=== PATIENT | male | born 1975 | race Caucasian/White ===

== ENCOUNTER → 2017-10-19 | Outpatient (CLI) | payer MEDICARE | LOC: CARD 16:01 | PROVIDERS: ATTEND Nurse Practitioner Family | DX: R00.0 Tachycardia, unspecified (principal) | CPT/HCPCS: 93005 ==

== ENCOUNTER → 2017-11-08 | Outpatient (CLI) | payer MEDICARE | LOC: CARD 12:24 | PROVIDERS: ATTEND Internal Medicine Cardiovascular Disease | DX: R00.0 Tachycardia, unspecified (principal); I10 Essential (primary) hypertension; R06.02 Shortness of breath; F32.89 Other specified depressive episodes; R53.83 Other fatigue | CPT/HCPCS: 93225; 93226 ==

== ENCOUNTER → 2017-11-10 | Outpatient (CLI) | payer MEDICARE ==
[~2017-11-10] MED LIST: CATHETER FLUSH 10 ML SYR IV PRN
[2017-11-10 09:10] VITALS: BP 126/84
[2017-11-10 09:13] VITALS: BP 149/86
[2017-11-10 09:22] VITALS: BP 204/85
--- NOTE | 2017-11-10 14:06 | STRESS TEST ---
DATE OF SERVICE: 11/10/2017 RESTING AND POST EXERCISE TECHNETIUM-99M TETROFOSMIN SPECT CT IMAGING ORDERING PHYSICIAN: Jesus Guerrier MD, MA, FACP, FACC PRIMARY PHYSICIAN: Dr. Nicole. OTHER PHYSICIAN: MARY Parra CLINICAL DIAGNOSIS: Shortness of breath. Baseline images were carried out after injection of 10.59 mCi technetium-99m tetrofosmin. This was followed by exercise on a treadmill. Heart rate and blood pressure responses to exercise were normal. After the patient had attained more than 85% of max predicted heart rate, 27.6 mCi technetium-99m tetrofosmin were injected and the exercise was continued for another minute. At peak exercise, there is considerable baseline artifact and the ST segments cannot be interpreted for ischemia. In the recovery phase, there is no distinct evidence of ischemia. No significant cardiac arrhythmia was seen. The test was stopped on account of fatigue. He exercised for a total of 7 minutes and 30 seconds in the [place]ingo protocol. He attained 9.1 METS of workload and 100% of maximum predicted heart rate. Heart rate and blood pressure product was . Review of images at rest and following stress does not indicate any significant perfusion defect consistent with significant myocardial ischemia or infarction. Gated images show normal global systolic function with normal regional wall motion. Left ventricular ejection fraction is calculated to be 58%. Left ventricular end diastolic volume is 70 mL. TID is absent (0.88.) CONCLUSIONS: 1. No evidence of any significant myocardial ischemia or infarction of the study. 2. Normal regional wall motion. 3. Normal global left ventricular systolic function with a calculated ejection fraction of 58%. Job ID: [id number] DocumentID: [id number] Dictated Date: 11/10/2017 11:30:59 Poultry Pinner Date: 11/10/2017 14:05:46 Dictated By: JESUS GUERRIER MD, MA, FACP, FACC,
== END ==
LOC: CARD 07:37
PROVIDERS: ATTEND Internal Medicine Cardiovascular Disease
DX: I10 Essential (primary) hypertension (principal); R06.02 Shortness of breath; F32.89 Other specified depressive episodes; R53.83 Other fatigue; R00.0 Tachycardia, unspecified
CPT/HCPCS: 78452; 93017

== ENCOUNTER 2019-01-09 16:06 | Emergency (ER) | payer MEDICARE ==
[~2019-01-09] VITALS: Ht 177.8 cm; Wt 91.6 kg
--- OUTSIDE RECORDS SUMMARY | 2019-01-09 16:10 | XMS REPORT ---
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 Name Role Phone Migration, Doctor Unavailable Unavailable PROBLEMS Type Condition ICD9-CM Code [id number] Code Onset Dates Condition Status SNOMED Code Problem Acute sinusitis, unspecified 461.9 Active 82582757 Problem Nondependent tobacco use disorder 305.1 Active 973189404 Problem Cough 786.2 Active 42946254 Problem Postnasal drip 784.91 Active 66496115 Problem Acute upper respiratory infections of unspecified site 465.9 Active 70656111 ALLERGIES No Information ENCOUNTERS Encounter Location Date Diagnosis [facility] [id number] [place] [phone] 19 Sep, 2015 [facility] [id number] [place] [phone] 16 Sep, 2015 [facility] [id number] [place] [phone] Sep, Left elbow pain M25.522 [facility] [id number] [place] [phone] 14 Oct, 2014 [facility] [id number] [place] [phone] 13 Oct, 2014 [facility] [id number] [place] [phone] Jul, [facility] [id number] [place] [phone] Jul, [facility] [id number] [place] [phone] 16 Apr, 2013 [facility] [id number] [place] [phone] 13 Apr, 2013 [facility] [address] [facility] [id number] [place] [address] Mar, [facility] [address] [facility] [id number] [place] [address] Jan, [facility] [address] [facility] [id number] [place] [address] November, IMMUNIZATIONS No Known Immunizations SOCIAL HISTORY Never Assessed REASON FOR VISIT EMR-[facility] PLAN OF CARE VITAL SIGNS MEDICATIONS Unknown Medications RESULTS No Results PROCEDURES No Known procedures INSTRUCTIONS MEDICATIONS ADMINISTERED No Known Medications
--- OUTSIDE RECORDS SUMMARY | 2019-01-09 16:10 | XMS REPORT | Continuity of Care Document ---
Author Organization Unknown Address Unknown Allergies Active Description Code Type Severity Reaction Onset Reported/Identified Relationship to Patient Clinical Status Yes CLINDAMYCIN HCL UNKNOWN UNKNOWN Yes LEVAQUIN UNKNOWN DERMATOLOGICAL - TEOFILO Yes PENICILLINS UNKNOWN UNKNOWN Yes SULFA (SULFONAMIDE ANTIBIOTICS) UNKNOWN DERMATOLOGICAL - TEOFILO Yes clindamycin Drug Allergy N/A N/A 12/15/2012 Yes Penicillins Drug Allergy N/A N/A 12/15/2012 Yes No Allergy Information Available [id number] Drug Allergy Unknown N/A 11/10/2017 Medications Medication Packaging Start Date Stop Date Route Dosage Sig HYDROCODONE/APAP 5MG/325MG TAB 5 MG/325MG (DONNA-TAB 5/325) TAB 05/26/2017 05/26/2017 ONCE&2128 CEFTRIAXONE INJ 1 GM (ROCEPHIN) GM 05/26/2017 05/26/2017 ONCE&2128 METOPROLOL TAB 25 MG (LOPRESSOR) MG 05/26/2017 05/26/2017 ONCE&2154 Problems Date Dx Coded Attending Type Code Diagnosis Diagnosed By 12/15/2012 461.9 SINUSITIS ACUTE 12/15/2012 461.9 SINUSITIS ACUTE 12/15/2012 461.9 SINUSITIS ACUTE 12/15/2012 PHUONG NAGY DDS 461.9 SINUSITIS ACUTE 02/10/2013 465.9 UPPER RESPIRATORY INFECTION 02/10/2013 465.9 UPPER RESPIRATORY INFECTION 02/10/2013 PHUONG NAGY DDS 465.9 UPPER RESPIRATORY INFECTION 04/13/2013 305.1 TOBACCO ABUSE 04/13/2013 784.91 POSTNASAL DRIP 04/13/2013 786.2 COUGH 04/13/2013 PHUONG NAGY DDS 305.1 TOBACCO ABUSE 04/13/2013 PHUONG NAGY DDS 784.91 POSTNASAL DRIP 04/13/2013 PHUONG NAGY DDS 786.2 COUGH 05/26/2017 Driss Mcintosh 401.0 MALIGNANT ESSENTIAL HYPERTENSION 05/26/2017 Dayna Driss Em 785.0 TACHYCARDIA, UNSPECIFIED 05/26/2017 Driss Mcintosh 891.0 OPEN WOUND OF KNEE, LEG [EXCEPT THIGH], AND ANKLE, WITHOUT MENTION OF COMPLICATION 05/26/2017 Driss Mcintosh I10 ESSENTIAL (PRIMARY) HYPERTENSION 05/26/2017 Driss Mcintosh R00.0 TACHYCARDIA, UNSPECIFIED 05/26/2017 Driss Mcintosh S91.031A PUNCTURE WOUND W/O FOREIGN BODY, RIGHT ANKLE, INIT ENCNTR 10/20/2017 DONNY WADSWORTHINA R GOLD ASSAYER Ot R00.0 TACHYCARDIA, UNSPECIFIED 10/25/2017 ERMELINDA RAFFI R GOLD ASSAYER Ot R00.0 TACHYCARDIA, UNSPECIFIED 11/01/2017 JASMIN QUIROZC, ALI FACP CCDS Ot R06.02 SHORTNESS OF BREATH 11/01/2017 JASMIN SEQUEIRA FACC, ALI FACP CCDS Ot R06.02 SHORTNESS OF BREATH 11/04/2017 JASMIN SEQUEIRA FACC, ALI FACP CCDS Ot R06.02 SHORTNESS OF BREATH 11/04/2017 ERMELINDA RAFFI R GOLD ASSAYER Ot R00.0 TACHYCARDIA, UNSPECIFIED 11/04/2017 JASMIN SEQUEIRA FACC, ALI FACP CCDS Ot R06.02 SHORTNESS OF BREATH 11/04/2017 ERMELINDA RAFFI R GOLD ASSAYER Ot R00.0 TACHYCARDIA, UNSPECIFIED 11/04/2017 JASMIN SEQUEIRA FACC, ALI FACP CCDS Ot R06.02 SHORTNESS OF BREATH 11/08/2017 DONNY WADSWORTHINA R GOLD ASSAYER Ot R00.0 TACHYCARDIA, UNSPECIFIED 11/08/2017 JASMIN SEQUEIRA FACC, ALI FACP CCDS Ot R00.0 TACHYCARDIA, UNSPECIFIED 11/09/2017 DONNY WADSWORTHINA R GOLD ASSAYER Ot R00.0 TACHYCARDIA, UNSPECIFIED 11/09/2017 JASMIN SEQUEIRA FACC, ALI FACP CCDS Ot R00.0 TACHYCARDIA, UNSPECIFIED 11/09/2017 JASMIN SEQUEIRA FACC, ALI FACP CCDS Ot F32.89 OTHER SPECIFIED DEPRESSIVE EPISODES 11/09/2017 JASMIN SEQUEIRA FACC, ALI FACP CCDS Ot I10 ESSENTIAL (PRIMARY) HYPERTENSION 11/09/2017 JASMIN SEQUEIRA FACC, ALI FACP CCDS Ot R00.0 TACHYCARDIA, UNSPECIFIED 11/09/2017 JASMIN SEQUEIRA FACC, ALI FACP CCDS Ot R06.02 SHORTNESS OF BREATH 11/09/2017 JASMIN SEQUEIRA FACC, ALI FACP CCDS Ot R53.83 OTHER FATIGUE 11/10/2017 RAFFI WADSWORTH APRN Ot R00.0 TACHYCARDIA, UNSPECIFIED 11/10/2017 JASMIN SEQUEIRA FACC, ALI FACP CCDS Ot F32.89 OTHER SPECIFIED DEPRESSIVE EPISODES 11/10/2017 JASMIN SEQUEIRA FACC, ALI FACP CCDS Ot I10 ESSENTIAL (PRIMARY) HYPERTENSION 11/10/2017 JASMIN SEQUEIRA FACC, ALI FACP CCDS Ot R00.0 TACHYCARDIA, UNSPECIFIED 11/10/2017 JASMIN SEQUEIRA FACC, ALI FACP CCDS Ot R06.02 SHORTNESS OF BREATH 11/10/2017 JASMIN SEQUEIRA [facility], ALI FACP CCDS Ot R53.83 OTHER FATIGUE 11/11/2017 JASMIN SEQUEIRA [facility], ALI FACP CCDS Ot F32.89 OTHER SPECIFIED DEPRESSIVE EPISODES 11/11/2017 JASMIN SEQUEIRA [facility], ALI FACP CCDS Ot I10 ESSENTIAL (PRIMARY) HYPERTENSION 11/11/2017 JASMIN SEQUEIRA [facility], ALI FACP CCDS Ot R00.0 TACHYCARDIA, UNSPECIFIED 11/11/2017 JASMIN SEQUEIRA [facility], ALI FACP CCDS Ot R06.02 SHORTNESS OF BREATH 11/11/2017 JASMIN QUIROZ, ALI FACP CCDS Ot R53.83 OTHER FATIGUE 11/21/2017 JASMIN QUIROZ, ALI FACP CCDS Ot F32.89 OTHER SPECIFIED DEPRESSIVE EPISODES 11/21/2017 JASMIN QUIROZ, ALI FACP CCDS Ot I10 ESSENTIAL (PRIMARY) HYPERTENSION 11/21/2017 JASMIN SEQUEIRA [facility], ALI FACP CCDS Ot R00.0 TACHYCARDIA, UNSPECIFIED 11/21/2017 JASMIN SEQUEIRA [facility], ALI FACP CCDS Ot R06.02 SHORTNESS OF BREATH 11/21/2017 JASMIN SEQUEIRA [facility], ALI FACP CCDS Ot R53.83 OTHER FATIGUE 11/29/2017 JASMIN SEQUEIRA [facility], ALI FACP CCDS Ot F32.89 OTHER SPECIFIED DEPRESSIVE EPISODES 11/29/2017 JASMIN QUIROZC, ALI FACP CCDS Ot I10 ESSENTIAL (PRIMARY) HYPERTENSION 11/29/2017 JASMIN SEQUEIRA [facility], ALI FACP CCDS Ot R00.0 TACHYCARDIA, UNSPECIFIED 11/29/2017 JASMIN SEQUEIRA [facility], ALI FACP CCDS Ot R06.02 SHORTNESS OF BREATH 11/29/2017 JASMIN SEQUEIRA [facility], ALI FACP CCDS Ot R53.83 OTHER FATIGUE 11/30/2017 JASMIN SEQUEIRA [facility], ALI FACP CCDS Ot F32.89 OTHER SPECIFIED DEPRESSIVE EPISODES 11/30/2017 JASMIN SEQUEIRA [facility], ALI FACP CCDS Ot I10 ESSENTIAL (PRIMARY) HYPERTENSION 11/30/2017 JASMIN SEQUEIRA [facility], ALI FACP CCDS Ot R00.0 TACHYCARDIA, UNSPECIFIED 11/30/2017 JASMIN SEQUEIRA [facility], ALI FACP CCDS Ot R06.02 SHORTNESS OF BREATH 11/30/2017 JASMIN SEQUEIRA [facility], ALI FACP CCDS Ot R53.83 OTHER FATIGUE Procedures There is no data. Results Test Result Range Comprehensive Metabolic Panel - 05/26/17 21:27 Albumin 4.3 g/dL 3.6-5.1 ALP 84 U/L 35-130 ALT 22 U/L 6-45 Anion Gap 16 6-14 AST 17 U/L 2-40 BUN 11 mg/dL 5-25 Calcium 9.7 mg/dL 8.3-10.4 Chloride 107 mmol/L 95-114 CO2 22 mEq/L 22-33 Creat 0.98 mg/dL 0.50-1.50 eGFR 84 mL/min/1.73m2 >59 Globulin 2.7 g/dL 2.3-3.5 Glucose 116 mg/dL 70-110 Osmo 291 280-295 Potassium 3.7 mmol/L 3.5-5.3 Sodium 141 mmol/L 134-148 TBil 0.4 mg/dL 0.2-1.2 TP 7.0 g/dL 6.0-8.3 Encounters ACCT No. Visit Date/Time Discharge Status Pt. Type Provider Facility Loc./Unit Complaint [id number] 01/02/2014 13:40:00 01/02/2014 23:59:59 CLS Outpatient PHUONG NAGY DDS [id number] 04/13/2013 13:03:00 Document Registration [id number] 02/10/2013 12:59:00 Document Registration [id number] 12/15/2012 15:26:00 Document Registration [id number] 11/10/2017 07:37:00 11/10/2017 23:59:59 CLS Outpatient JASMIN SEQUEIRA FACC, ALI RICHIEP CCDS [facility] CARD R06.02 SOB [id number] 11/08/2017 12:24:00 11/08/2017 23:59:59 CLS Outpatient JASMIN SEQUEIRA FACC, ALI FACP CCDS [facility] CARD R06.02 SOB [id number] 10/20/2017 12:43:00 10/20/2017 23:59:59 CLS Preadmit RAFFI WADSWORTH APRN [facility] CARD BENIGN HYPERTENSION [id number] 10/19/2017 16:01:00 10/19/2017 23:59:59 CLS Outpatient RAFFI WADSWORTH APRN [facility] CARD RAPID HEART BEAT [id number] 05/26/2017 21:00:00 05/26/2017 22:40:00 DIS Outpatient Driss Mcintosh [id number] 05/26/2017 21:30:33 Document Registration
[2019-01-09] MEDS ORDERED: RISPERIDONE 3 MG (16:18)
[2019-01-09] MEDS ORDERED: AMITRIPTYLIN (16:18)
[2019-01-09] MEDS ORDERED: METOPROL TAR (16:18)
[2019-01-09] MEDS ORDERED: NS IV 1000 ML 1,000 ML IV SCH (16:40)
[2019-01-09] MEDS ORDERED: KETOROLAC 30 MG/ML VIAL IVP STA (16:40)
[2019-01-09] MEDS ORDERED: PROCHLORPERAZINE 10 MG/2ML INJ (COMPAZINE) IV ONE (16:45)
[2019-01-09] MEDS ORDERED: diphenhydrAMINE 50 MG/ML INJ (BENADRYL) IVP ONE (16:45)
--- NOTE | 2019-01-09 17:40 | ED Headache ---
General Chief Complaint: Head/Cervical Problems Stated Complaint: HEADACHE Nursing Triage Note: PT AMB TO TRIAGE WITH COMPLAINT OF HEADACHE. HEADACHE HAS BEEN GOING ON FOR THREE WEEKS. IS IN BACK OF HEAD AND GOES DOWN HIS NECK. W[facility] AND WAS SENT OVER HERE. Nursing Sepsis Screen: No Definite Risk History of Present Illness Date Seen by Provider: Jan 09, 2019 Time Seen by Provider: 16:15 Initial Comments 43-year-old male presents for a 3 week history of headache. He reports the pain is in the occipital region and seems to start behind his left ear and radiate to right side. He has a history of hypertension. He has not had an eye exam in over 2-3 years. He denies vision changes from the day however by evening he sometimes has double vision in his right eye. He suffer from migraines approximately 20 years ago and used Imitrex at that time with adequate relief. He has been taking Tylenol, ibuprofen, and naproxen. Timing/Duration: episodic Severity/Quality: moderate Location: occipital Prior Headaches/Recent Trauma: occasional headaches Associated Symptoms: No confusion, No fatigue, No facial pain, No fever/chills, No flushing, No loss of consciousness; nausea/vomiting; No nasal congestion, No nasal drainage, No numbness in legs/feet, No seizures, No sinus infection, No stiff neck; vision changes; No weakness Allergies and Home Medications Allergies Coded Allergies: Penicillins (Verified Allergy, Unknown, 01/09/19) clindamycin (Verified Allergy, Unknown, 01/09/19) Home Medications Sumatriptan Succinate 50 Mg Tab, 50 MG PO ONCE PRN for MIGRAINE Take 1 tablet at onset of headach, may repeat times 1 at 2 hours if symptoms not improved. Prescribed by: MEL PERES on 01/09/19 7852 Patient Home Medication List Home Medication List Reviewed: Yes Review of Systems Review of Systems Constitutional: no symptoms reported, chills Psychiatric/Neurological: See HPI, Headache All Other Systems Reviewed Negative Unless Noted: Yes Past Qnxcqgq-Xziysu-Tbqhwa Hx Past Med/Social Hx: Reviewed Nursing Past Med/Soc Hx Patient Social History Alcohol Use: Denies Use Recreational Drug Use: No Smoking Status: Current Everyday Smoker Type Used: Cigarettes Recent Foreign Travel: No Contact w/Someone Who Travel: No Recent Infectious Disease Expo: No Recent Hopitalizations: No Immunizations Up To Date Tetanus Booster (TDap): Unknown Seasonal Allergies Seasonal Allergies: No Past Medical History Surgeries: Yes (SKIN GRAFT) Tonsillectomy Respiratory: No Cardiac: Yes Neurological: Yes Headaches /Migraines Genitourinary: No Gastrointestinal: No Musculoskeletal: No Endocrine: No HEENT: No Cancer: No Psychosocial: No Blood Disorders: No Physical Exam Vital Signs Vital Signs - First Documented 01/09/19 16:08 Temp 97.8 Pulse 97 Resp 17 B/P (MAP) 156/98 (117) Pulse Ox 95 O2 Delivery Room Air Capillary Refill : Less Than 3 Seconds Height, Weight, BMI Height: 5'10.00" Weight: 202lbs. oz. 91.067941no; BMI Method:Stated General Appearance: WD/WN, no apparent distress, other (patient wearing sunglasses due to photophobia) HEENT: PERRL/EOMI, normal ENT inspection, TMs normal, pharynx normal Neck: non-tender, full range of motion, supple, normal inspection Cardiovascular: normal peripheral pulses, regular rate, rhythm Respiratory: chest non-tender, lungs clear, normal breath sounds Gastrointestinal: normal bowel sounds, non tender, soft Extremities: normal range of motion, non-tender, normal inspection, no pedal edema, normal capillary refill Psychiatric: alert, oriented x 3, depressed affect Crainal Nerves: normal hearing, normal speech, PERRL Coordination/Gait: normal finger to nose, normal gait Motor/Sensory: no motor deficit, no sensory deficit, no pronator drift Skin: normal color, warm/dry Lymphatic: no adenopathy Progress/Results/Core Measures Results/Orders My Orders Orders - MEL PERES Ed Iv/Invasive Line Start (01/09/19 16:40) Ns Iv 1000 Ml (Sodium Chloride 0.9%) (01/09/19 16:40) Ketorolac Injection (Toradol Injection) (01/09/19 16:40) Diphenhydramine Injection (Benadryl Inje (01/09/19 16:45) Prochlorperazine Injection (Compazine In (01/09/19 16:45) Iohexol Injection (Omnipaque 350 Mg/Ml 1 (01/09/19 17:45) Received Contrast (Hold Metformin- Contr (01/09/19 17:45) Sodium Chloride Flush (Catheter Flush Sy (01/09/19 17:45) Ns (Ivpb) (Sodium Chloride 0.9% Ivpb Bag (01/09/19 17:45) Ct Head W Wo (01/09/19 16:46) Medications Given in ED Current Medications Medications Dose Ordered Sig/Yong Route Start Time Stop Time Status Last Admin Dose Admin Diphenhydramine HCl 50 mg ONCE ONCE IVP 01/09/19 16:45 01/09/19 16:46 DC 01/09/19 17:02 50 MG Iohexol 100 ml ONCE ONCE IV 01/09/19 17:45 01/09/19 17:46 DC 01/09/19 17:33 80 ML Prochlorperazine Edisylate 10 mg ONCE ONCE IV 01/09/19 16:45 01/09/19 16:46 DC 01/09/19 17:02 10 MG Sodium Chloride 10 ml NEEDED PRN IV 01/09/19 17:45 01/09/19 19:51 DC 01/09/19 17:33 10 ML Sodium Chloride 100 ml ONCE ONCE IV 01/09/19 17:45 01/09/19 17:46 DC 01/09/19 17:33 80 ML Vital Signs/I&O 01/09/19 01/09/19 16:08 18:42 Temp 97.8 Pulse 97 72 Resp 17 17 B/P (MAP) 156/98 (117) 149/99 (116) Pulse Ox 95 99 O2 Delivery Room Air Room Air Blood Pressure Mean: 117 Progress Progress Note : Time: 16:15 Progress Note Patient seen and evaluated, will obtain CT head, IV normal saline 1 L, Toradol 30 mg IV for pain, Benadryl 50 mg IV for migraine, Compazine 10 mg for nausea per IV. 171 CT study shows no acute findings. Patient reports minimal improvement in symptoms since medication. Will turn lights off in outpatient keep eyes closed, he has been continuing to use his Smart phone. Encouraged she not use it until the headache is improving, and continued to limit use. 1814 patient was able to rest with his eyes closed for approximately 45 minutes, he does report improvement in his symptoms. Discharge instructions and return precautions reviewed with the patient. All questions answered. We'll try Imitrex on an outpatient basis and have follow-up with his primary care provider. Diagnostic Imaging Diagonstic Imaging: CT Plain Films/CT/US/NM/MRI: head Comments [facility] [place] NAME: LISSA HIGUERA [facility] REC#: [id number] PT STATUS: REG ER : 1975 PHYSICIAN: MEL PERES ADMIT DATE: 01/09/19/ER Draft Date of Exam:01/09/19 CT HEAD W WO PROCEDURE: CT head with and without contrast. TECHNIQUE: Multiple contiguous axial images were obtained through the brain before and after the administration of intravenous contrast. Auto Exposure Controls were utilized during the CT exam to meet ALARA standards for radiation dose reduction. INDICATION: Headache x3 weeks. No known trauma. COMPARISON: None FINDINGS: There is no midline shift or mass effect. The ventricles and sulci are unremarkable. No evidence for acute intracranial hemorrhage, abnormal extra-axial fluid collections or cerebral edema is present. The basilar cisterns are unremarkable. The bony calvarium is intact. The visualized paranasal sinuses and mastoid air cells are clear. IMPRESSION: Negative appearing noncontrast CT of the head. Dictated on workstation # [id number] Dict: 01/09/19 1758 Trans: 01/09/19 1800 DO [id number] Interpreted by: LIVIA OQUENDO DO Electronically signed by: Reviewed: Reviewed by Me Departure Impression Primary Impression: Migraine Qualified Codes: G43.019 - Migraine without aura, intractable, without status migrainosus Disposition: HOME, SELF-CARE Condition: Improved Departure-Patient Inst. Decision time for Depature: 18:15 Referrals: NO,LOCAL PHYSICIAN (PCP) Primary Care Physician RAFFI WADSWORTH APRN (Family) Primary Care Physician Patient Instructions: Migraine Headache (DC) Add. Discharge Instructions: Increase water intake. You may take Excedrin Migraine or use the prescription and Imitrex as directed. Follow-up with your primary care provider if symptoms are not improving or worsen. Follow-up with Dr. Guerrier for your blood pressure. Schedule follow-up with an accountant controller for vision. Return to emergency department for new, urgent health care needs. All discharge instructions reviewed with patient and/or family. Voiced understanding. Scripts Sumatriptan Succinate (Imitrex) 50 Mg Tab 50 MG PO ONCE PRN for MIGRAINE, #20 TAB 0 Refills Take 1 tablet at onset of headach, may repeat times 1 at 2 hours if symptoms not improved. Prov: MEL PERES 01/09/19 Copy Copies To 1: ARLEY CHUNG MD, AMY ARNP Jan 09, 2019 17:40
[2019-01-09] MEDS ORDERED: IOHEXOL 350 MG/ML 100 ML (OMNIPAQUE 350) VIAL IV ONE (17:45)
[2019-01-09] MEDS ORDERED: CATHETER FLUSH 10 ML SYR IV PRN (17:45)
[2019-01-09] MEDS ORDERED: NS 100 ML (IVPB) BAG IV ONE (17:45)
[2019-01-09] MEDS ORDERED: HOLD METFORMIN - RECEIVED CONTRAST 20 ML VIAL IV SCH (17:45)
--- NOTE | 2019-01-09 18:00 | Diagnostic Imaging Report ---
PROCEDURE: CT head with and without contrast. TECHNIQUE: Multiple contiguous axial images were obtained through the brain before and after the administration of intravenous contrast. Auto Exposure Controls were utilized during the CT exam to meet ALARA standards for radiation dose reduction. INDICATION: Headache x3 weeks. No known trauma. COMPARISON: None FINDINGS: There is no midline shift or mass effect. The ventricles and sulci are unremarkable. No evidence for acute intracranial hemorrhage, abnormal extra-axial fluid collections or cerebral edema is present. The basilar cisterns are unremarkable. The bony calvarium is intact. The visualized paranasal sinuses and mastoid air cells are clear. IMPRESSION: Negative appearing noncontrast CT of the head. Dictated by: Dictated on workstation # [id number]
[2019-01-09] MEDS ORDERED: SMTR50T PO (18:20)
[2019-01-09 18:42] VITALS: BP 149/99
== END 2019-01-09 18:42 | disposition home or self-care (01) ==
LOC: EDUNIT# 16:06 → ER 16:07
DX: G43.909 Migraine, unspecified, not intractable, without status migrainosus (principal); F17.210 Nicotine dependence, cigarettes, uncomplicated; Z90.89 Acquired absence of other organs; Z94.5 Skin transplant status; Z88.0 Allergy status to penicillin; Z88.1 Allergy status to other antibiotic agents
CPT/HCPCS: 70470; 96361; 96374; 96375